=== PATIENT | female | born 1955 | race Caucasian/White ===

== ENCOUNTER → 2016-11-09 | Outpatient (CLI) | payer OTHER | END | disposition home or self-care (01) | LOC: GMAB 10:38 | PROVIDERS: ATTEND Family Medicine | DX: Z00.01 Encounter for general adult medical examination with abnormal findings (principal) ==

== ENCOUNTER → 2016-11-15 | Outpatient (CLI) | payer OTHER ==
--- NOTE | 2016-11-15 10:12 | RAD ---
EXAM DESCRIPTION: Knee,Right Complete CLINICAL HISTORY: 61 years Female, RIGHT KNEE PAIN IMPRESSION: Four views of right knee reveal right knee arthroplasty. No evidence of fracture or osseous lesion. No joint effusion noted. Hardware is appropriately positioned. Electronically signed by: Phong Ventura MD 11/15/2016 10:11 AM CDT
== END | disposition home or self-care (01) ==
LOC: RAD 09:04
PROVIDERS: ATTEND Orthopaedic Surgery
DX: M25.561 Pain in right knee (principal)

== ENCOUNTER → 2017-01-11 | Outpatient (CLI) | payer OTHER ==
--- NOTE | 2017-01-13 10:04 | MAM ---
EXAM DESCRIPTION: 3D Screening BILATERAL CLINICAL HISTORY: 61 yearsFemaleSCREENING. No complaints. Aunt with breast cancer. Postmenopausal. Currently on HRT.. COMPARISON: Prior studies at outside imaging facility are not available at this time. No prior reports available. TECHNIQUE: Bilateral CC and MLO projection full-field images, 3-D tomosynthesis digital mammographic technique. Also bilateral synthesized CC/ MLO full-field images. CAD not utilized. FINDINGS: The breast parenchymal density pattern is: Heterogeneously dense breast tissue, which may obscure small masses. No skin thickening or nipple retraction focal asymmetry in the upper outer quadrant of the posterior third of the right breast at the 930 clock position. Greater than 10 cm from the nipple. No focal, stellate mass or density, , and no suspicious microcalcifications bilaterally. No focal asymmetry in the left breast. Bilateral solitary microcalcifications. IMPRESSION: BI-RADS CATEGORY: 0 - INCOMPLETE- Need additional imaging evaluation. FOLLOW-UP: Recall for additional imaging: Targeted right breast ultrasound region of interest upper outer quadrant.. Written communication explaining the results and follow-up will be mailed to the patient and referring care provider. Electronically signed by: Fransico Hinds MD 01/13/2017 10:02 AM CDT Workstation: [id number]
== END ==
LOC: MAMMO 13:30
PROVIDERS: ATTEND Obstetrics & Gynecology
DX: Z12.31 Encounter for screening mammogram for malignant neoplasm of breast (principal)
CPT/HCPCS: 77063; G0202

== ENCOUNTER → 2017-02-03 | Outpatient (CLI) | payer BC, OTHER ==
--- NOTE | 2017-02-03 15:16 | US ---
EXAM DESCRIPTION: Breast,Right CLINICAL HISTORY: 61 yearsFemaleABNORMAL MAMMO COMPARISON: Digital diagnostic 3-D breast tomosynthesis right breast date 01/11/2017. TECHNIQUE: Transcutaneous scanning of the upper inner quadrant of the right breast utilizing two-dimensional and Doppler modes. Scanning performed by the supervisory training specialist and Dr. Hinds. FINDINGS: Anechoic cyst with septation, or multiple cysts abutting each other at the 200 clock position of the right breast, 7 cm from the nipple. Well-circumscribed borders. Parallel orientation. Posterior acoustic enhancement. Nonvascular. Other smaller cysts are seen in the nearby parenchyma on real-time scanning. No discrete solid masses. No large calcifications. IMPRESSION: BI-RADS CATEGORY: 2 - BENIGN FINDINGS. FOLLOW UP: Return to routine digital bilateral screening, one year interval from December 2016. Written communication explaining the findings and follow-up, will be mailed to the patient and referring health care provider. According to the [employer], yearly mammograms are recommended starting at age 40 and continuing as long as a woman is in good health. Any breast change noted on a breast self-exam should be reported promptly to the patient's healthcare provider. Breast MRI is recommended for women with an approximately 20-25% or greater lifetime risk of breast cancer, including women with a strong family history of breast or ovarian cancer and women who have been treated for Hodgkin's disease. A negative mammographic report should not delay tissue diagnosis in patients with significant clinical history or physical findings. Extremely dense breast tissue limits the sensitivity of digital mammography. The findings and the follow-up plan were reviewed in person with the patient after the examination. Electronically signed by: Fransico Hinds MD 02/03/2017 3:15 PM CDT
== END | disposition home or self-care (01) ==
LOC: MAMMO 13:14
PROVIDERS: ATTEND Obstetrics & Gynecology
DX: R92.8 Other abnormal and inconclusive findings on diagnostic imaging of breast (principal)

== ENCOUNTER → 2017-11-24 | Outpatient (CLI) | payer BC | LOC: GMAB 11:42 | PROVIDERS: ATTEND Family Medicine | DX: Z00.01 Encounter for general adult medical examination with abnormal findings (principal) ==

== ENCOUNTER → 2018-02-14 | Outpatient (CLI) | payer BC ==
--- NOTE | 2018-02-15 14:07 | MAM ---
EXAM DESCRIPTION: 3D Screening BILATERAL : Digital Mammography. CLINICAL HISTORY: 62 years Female SCREENING history sheet. Lifetime risk of developing breast cancer (Tyrer-Cuzick model) is 8 %. COMPARISON: Bilateral screening digital breast tomosynthesis 01/11/2017. TECHNIQUE: Bilateral CC and MLO projection full-field images, Digital tomosynthesis mammographic technique. Bilateral digital 2-D full-field MLO images. CAD not utilized. FINDINGS: The breast parenchymal density pattern is: Scattered areas of fibroglandular density. No skin thickening or nipple retraction. Bilateral vascular calcifications. Bilateral solitary microcalcifications. Focal asymmetry in the upper outer quadrant of the middle third of the left breast at the 100 clock position, approximately 4 cm from the nipple. Not as well seen on the prior study. Associated with microcalcifications. No new focal, stellate mass or density, focal asymmetry , and no suspicious microcalcifications right breast. IMPRESSION: BI-RADS CATEGORY: 0 - INCOMPLETE- Need additional imaging evaluation. FOLLOW-UP: Recall for additional imaging: Full-field left breast tomosynthesis images. Targeted left breast ultrasound if indicated by tomosynthesis images.. Written communication concerning the IMPRESSION and Follow-up, will be mailed to the patient and referring health care provider. Electronically signed by: Fransico Hinds MD 02/15/2018 2:06 PM CDT
== END ==
LOC: MAMMO 08:00
PROVIDERS: ATTEND Obstetrics & Gynecology
DX: Z12.31 Encounter for screening mammogram for malignant neoplasm of breast (principal)

== ENCOUNTER → 2018-02-27 | Outpatient (CLI) | payer BC ==
--- NOTE | 2018-02-27 16:29 | US ---
EXAM DESCRIPTION: Breast,Left: Ultrasound CLINICAL HISTORY: 62 yearsFemaleABNORMAL MAMMO COMPARISON: Diagnostic digital 2-D and breast tomosynthesis left breast on this visit. Bilateral screening digital breast tomosynthesis 02/14/2018. TECHNIQUE: Transcutaneous scanning of the left breast utilizing wright-scale and Doppler modes. Scanning performed by the open shank coverer and Dr. Hinds. FINDINGS: Scanning of the upper outer quadrant of the left breast with emphasis at the 100 clock position 4 cm from the nipple. Mostly fatty echotexture with scattered fibroglandular elements. Collection of dilated ducts or small cysts is noted. Well-defined montoya, parallel orientation and posterior enhancement features. Hypoechoic circumscribed mass with echogenic center measures 10.3 x 4.9 mm most likely a lymph node. Minimal central vascularity. Anechoic circumscribed object with parallel orientation and posterior enhancement features measures 2.8 x 3.9 mm consistent with a cyst. Not vascular. IMPRESSION: 1. Bi-Rads Category 2: Benign. 2. Please refer to diagnostic digital 2-D and breast tomosynthesis left breast examination and report on this visit. The FINDINGS and the FOLLOW-UP plan were reviewed in person with the patient after the examination. Written communication explaining the IMPRESSION and FOLLOW-UP will be mailed to the patient and referring care provider. Electronically signed by: Fransico Hinds MD 02/27/2018 4:28 PM CDT
--- NOTE | 2018-02-28 09:20 | MAM ---
EXAM DESCRIPTION: 3D Diagnostic, Left: Digital Mammography CLINICAL HISTORY: 62 yearsFemaleSCREENING . Focal asymmetry in the left breast. COMPARISON: Digital screening bilateral breast tomosynthesis 02/14/2018. . TECHNIQUE: Left LM projection full-field images, digital mammographic tomosynthesis technique. Spot magnification digital technique left breast region of interest. CAD not utilized. FINDINGS: The breast parenchymal density pattern is: Scattered areas of fibroglandular density. No skin thickening or nipple retraction the focal asymmetry seen on the prior screening study in the left breast at the 100 clock position, approximately 4 cm from the nipple, is not well seen on the full Field or spot images. ULTRASOUND: Scanning of the upper outer quadrant of the left breast with emphasis at the 100 clock position 4 cm from the nipple. Mostly fatty echotexture with scattered fibroglandular elements. Collection of dilated ducts/small cysts noted. Well-defined montoya, parallel orientation and posterior enhancement features. Hypoechoic circumscribed mass with echogenic center measures 10.3 x 4.9 mm most likely a lymph node. Minimal central vascularity. Anechoic circumscribed object with parallel orientation and posterior enhancement features measures 2.8 x 3.9 mm consistent with a cyst. Not vascular. IMPRESSION: Benign exam. BIRAD CATEGORY: 2 BENIGN FINDINGS. RECOMMENDATIONS: FOLLOW UP: Return to routine digital bilateral screening, one year interval from January 2018. Written communication explaining the IMPRESSION and follow-up, will be mailed to the patient and referring health care provider. According to the [employer], yearly mammograms are recommended starting at age 40 and continuing as long as a woman is in good health. Any breast change noted on a breast self-exam should be reported promptly to the patient's healthcare provider. Breast MRI is recommended for women with an approximately 20-25% or greater lifetime risk of breast cancer, including women with a strong family history of breast or ovarian cancer and women who have been treated for Hodgkin's disease. A negative mammographic report should not delay tissue diagnosis in patients with significant clinical history or physical findings. Extremely dense breast tissue limits the sensitivity of digital mammography. Electronically signed by: Fransico Hinds MD 02/28/2018 9:19 AM CDT
== END ==
LOC: US 13:30
PROVIDERS: ATTEND Obstetrics & Gynecology
DX: R92.8 Other abnormal and inconclusive findings on diagnostic imaging of breast (principal)
CPT/HCPCS: 76641; 77065; G0279

== ENCOUNTER → 2019-03-08 | Outpatient (CLI) | payer BC ==
--- NOTE | 2019-03-09 17:02 | MAM ---
EXAM DESCRIPTION: 3D Screening BILATERAL : Digital Mammography. CLINICAL HISTORY: 63 years Female Screening . No complaints. No personal history of breast cancer. Remote family history of breast cancer. Menarche age 14. Childbirth. Hysterectomy 25+ years. HRT 5 or more years ago.. Lifetime risk of developing breast cancer (Tyrer-Cuzick model)(%): 6.2. COMPARISON: Bilateral screening digital breast tomosynthesis 02/14/2018. Diagnostic digital mammography and targeted left breast ultrasound February 27, 2018.. TECHNIQUE: Bilateral CC and MLO projection full-field images, digital tomosynthesis mammographic technique. Bilateral digital 2-D full-field MLO images. CAD not available for tomosynthesis or 2-D images. FINDINGS: The breast parenchymal density pattern is: Heterogeneously dense breast tissue, which may obscure small masses. No skin thickening or nipple retraction. Bilateral solitary microcalcifications. Some of fibroglandular tissues appear nodular bilaterally. No new focal, stellate mass or density, focal asymmetry , and no suspicious microcalcifications bilaterally. Stable mammograms compared to prior study. IMPRESSION: Benign exam. BIRAD CATEGORY: 2 BENIGN FINDINGS. RECOMMENDATIONS: FOLLOW UP: Routine digital bilateral mammographic screening, one year interval from February 2019. Written communication explaining the IMPRESSION and follow-up, will be mailed to the patient and referring health care provider. According to the [employer], yearly mammograms are recommended starting at age 40 and continuing as long as a woman is in good health. Any breast change noted on a breast self-exam should be reported promptly to the patient's healthcare provider. Breast MRI is recommended for women with an approximately 20-25% or greater lifetime risk of breast cancer, including women with a strong family history of breast or ovarian cancer and women who have been treated for Hodgkin's disease. A negative mammographic report should not delay tissue diagnosis in patients with significant clinical history or physical findings. Extremely dense breast tissue limits the sensitivity of digital mammography. Electronically signed by: Fransico Hinds MD 03/09/2019 5:00 PM CDT
== END ==
LOC: GMAE 10:33
PROVIDERS: ATTEND Obstetrics & Gynecology
DX: Z12.31 Encounter for screening mammogram for malignant neoplasm of breast (principal); Z00.00 Encounter for general adult medical examination without abnormal findings

== ENCOUNTER → 2019-11-15 | Outpatient (CLI) | payer BC | LOC: LAB.O 12:51 | PROVIDERS: ATTEND Family Medicine | DX: K14.9 Disease of tongue, unspecified (principal); R20.9 Unspecified disturbances of skin sensation ==

== ENCOUNTER → 2020-03-13 | Outpatient (CLI) | payer BC ==
--- NOTE | 2020-03-17 16:37 | MAM ---
EXAM DESCRIPTION: 3D Screening BILATERAL : Digital Mammography. CLINICAL HISTORY: 64 years Female SCREEN . No complaints. Remote family history of breast cancer. Menarche age 14. Childbirth age 25. Menopause age 32. Currently on HRT. Lifetime risk of developing breast cancer (Tyrer-Cuzick model)(%): 6.0. COMPARISON: Bilateral screening digital breast tomosynthesis February 2019. Bilateral screening and diagnostic digital breast tomosynthesis and directed left breast ultrasound February 2018. TECHNIQUE: Bilateral CC and MLO projection full-field images digital tomosynthesis mammographic technique. Bilateral digital 2-D full-field MLO images. CAD available for 2-D images. FINDINGS: The breast parenchymal density pattern is: Heterogeneously dense breast tissue, which may obscure small masses. No skin thickening or nipple retraction. Solitary microcalcifications. Intramammary lymph nodes stable. No new focal, stellate mass or density, focal asymmetry , and no suspicious microcalcifications bilaterally. Stable mammograms compared to prior study. IMPRESSION: Benign exam. BIRAD CATEGORY: 2 BENIGN FINDINGS. RECOMMENDATIONS: FOLLOW UP: Routine digital bilateral mammographic screening, one year interval from February 2020. Written communication explaining the IMPRESSION and follow-up, will be mailed to the patient and referring health care provider. According to the [employer], yearly mammograms are recommended starting at age 40 and continuing as long as a woman is in good health. Any breast change noted on a breast self-exam should be reported promptly to the patient's healthcare provider. Breast MRI is recommended for women with an approximately 20-25% or greater lifetime risk of breast cancer, including women with a strong family history of breast or ovarian cancer and women who have been treated for Hodgkin's disease. A negative mammographic report should not delay tissue diagnosis in patients with significant clinical history or physical findings. Extremely dense breast tissue limits the sensitivity of digital mammography. Electronically signed by: Fransico Hnids MD 03/17/2020 4:36 PM CDT
== END ==
LOC: MAMMO 08:00
PROVIDERS: ATTEND Obstetrics & Gynecology
DX: Z12.31 Encounter for screening mammogram for malignant neoplasm of breast (principal)

== ENCOUNTER → 2020-04-16 | Outpatient (CLI) | payer BC | LOC: GMAE 14:52 | PROVIDERS: ATTEND Family Medicine | DX: I10 Essential (primary) hypertension (principal); Z79.899 Other long term (current) drug therapy; E78.2 Mixed hyperlipidemia ==